=== PATIENT | male | born 1965 | race Caucasian/White ===

== ENCOUNTER → 2025-04-01 14:24 | Outpatient (REF) | payer BC, SELFPAY | LOC: RAD 14:24 | PROVIDERS: ATTENDING PHYSICIAN Internal Medicine | DX: R10.9 Unspecified abdominal pain (principal) | CPT/HCPCS: 74177; Q9967 ==

== ENCOUNTER 2025-05-19 06:19 | Day surgery (SDC) | payer BC, SELFPAY ==
[2025-05-19] VITALS (8 sets, daily range): BP systolic 135–155; BP diastolic 81–103; BMI 34.2
[2025-05-19] MEDS: TYLENOL 1000 MG PO (09:34)
[2025-05-19] MEDS: NORMOSOL-R/PLASMALYTE-A 1000 IV (09:44)
[2025-05-19] MEDS: DILAUDID 0.5 MG IV (11:59)
[2025-05-19] MEDS: ROXICODONE 5 MG PO (13:12)
== END 2025-05-19 13:20 | disposition home or self-care (01) ==
LOC: SDS 06:19
PROVIDERS: ATTENDING PHYSICIAN Otolaryngology
DX: J34.3 Hypertrophy of nasal turbinates (principal); J34.2 Deviated nasal septum
CPT/HCPCS: 30140